=== PATIENT | female | born 1975 | race Caucasian/White ===

== ENCOUNTER 2022-09-02 06:29 | Emergency (ER) | payer OTHER ==
[2022-09-02] MEDS ORDERED: Prochlorperazine 10 MG/2 ML SDV IVPUSH ONE (07:33)
[2022-09-02] MEDS ORDERED: Ketorolac 30 MG/ML SDV IVPUSH ONE (07:33)
[2022-09-02] MEDS ORDERED: Sodium Chloride 0.9% 10 ML Syringe FLUSH PRN (07:33)
[2022-09-02] MEDS ORDERED: diphenhydrAMINE 50 MG/ML SDV IVPUSH ONE (07:34)
[2022-09-02] MEDS ORDERED: Sodium Chloride 0.9% 1,000 ML IV SCH (07:45)
== END 2022-09-02 09:15 | disposition home or self-care (01) ==
LOC: JP.ED 06:29
DX: G43.009 Migraine without aura, not intractable, without status migrainosus (principal)
CPT/HCPCS: 96361; 96374; 96375; 99283; J0780; J1200; J1885; J7030

== ENCOUNTER 2024-08-27 06:52 | Day surgery (SDC) | payer OTHER ==
[2024-08-27] MEDS ORDERED: Propofol 200 MG/20 ML SDV ONE (07:31)
[2024-08-27] MEDS ORDERED: fentaNYL 50 MCG/ML SDV ONE (07:31)
[2024-08-27] MEDS ORDERED: Midazolam 1 MG/ML 2 ML SDV ONE (07:31)
[2024-08-27] MEDS: Lactated Ringers 1,000 ML IV SCH (07:40)
[2024-08-27] MEDS ORDERED: Atropine 0.4 MG/ML SDV ONE (08:22)
== END 2024-08-27 09:50 | disposition home or self-care (01) ==
LOC: JP.SDS 06:52
PROVIDERS: ATTEND Surgery
DX: Z12.11 Encounter for screening for malignant neoplasm of colon (principal); J45.909 Unspecified asthma, uncomplicated; K21.9 Gastro-esophageal reflux disease without esophagitis
CPT/HCPCS: 00812; 45378; J0461; J2250; J2704; J3010; J7120